=== PATIENT | male | born 2000 | race Caucasian/White ===

== ENCOUNTER 2024-10-06 11:27 | Emergency (ER) | payer OTHER ==
[~2024-10-06] VITALS: Ht 175.3 cm; Wt 65.8 kg
[2024-10-06 11:43] VITALS: BP 128/84; TEMP 97.3; O2SAT 100
[2024-10-06] MEDS ORDERED: CEPH500C PO (13:18)
[2024-10-06] MEDS ORDERED: HOME MED LIST COMPLETE! XX SCH (13:20)
== END 2024-10-06 13:31 | disposition home or self-care (01) ==
LOC: M ED 11:27 → EDBD 11:27 → M ED 13:31
DX: S61.312A Laceration without foreign body of right middle finger with damage to nail, initial encounter (principal); S60.041A Contusion of right ring finger without damage to nail, initial encounter; W23.0XXA Caught, crushed, jammed, or pinched between moving objects, initial encounter; F10.10 Alcohol abuse, uncomplicated; Y92.89 Other specified places as the place of occurrence of the external cause; Y93.89 Activity, other specified; Y99.1 Military activity; Z79.2 Long term (current) use of antibiotics